=== PATIENT | male | born 1985 | race Caucasian/White ===

== ENCOUNTER 2021-09-22 07:12 | Emergency (ER) | payer SELFPAY ==
[2021-09-22 07:13] VITALS: BP 180/137; PULSE 110; RESP 16; TEMP 36.6; O2SAT 98; BMI 26.9
--- NOTE | 2021-09-22 07:32 | EDS_ITS ---
HPI History of Present Illness Chief Complaint: Flank Pain Informant: patient Narrative Narrative: Patient is a 35-year-old male with history of kidney stones presenting with dysuria and flank pain. He states he passes kidney stones frequently, but usually on his own at home. He notes for the past month he has had intermittent flank pain, right worse than left. Has also been having dysuria in the middle of the night for the past week or so. Denies any hematur ia. Denies any testicular pain, swelling or penile discharge. States it feels like his kidney stones. The pain was so bad he could not take anymore so he came in. Is been taking Advil at home and last had a dose at 8 PM last night. Has required lithotripsy in the past. Does not currently have a urologist. Denies any fever or chills. Denies any systemic symptoms. No other complaints at this time. Prior similar symptoms: Yes PFSH [facility] Medical History Kidney stone Home Medications omeprazole 20 mg PO DAILY 05/10/17 [History Last Taken 05/09/17] ondansetron [Zofran Odt] 8 mg PO Q8H PRN PRN #10 05/10/17 [Rx Last Taken Unknown] oxycodone-acetaminophen 1 tab PO Q6H PRN PRN #20 tablet 05/10/17 [Rx Last Taken Unknown] tamsulosin [Flomax] 0.4 mg PO DAILY #7 cap.er.24h 05/10/17 [Rx Last Taken Unknown] ferrous sulfate [iron] 325 mg PO TID #90 tab 09/22/21 [Rx Last Taken Unknown] ibuprofen 600 mg PO Q6H PRN PRN #20 tab 09/22/21 [Rx Last Taken Unknown] ondansetron 4 mg PO Q8H PRN #14 tab 09/22/21 [Rx Last Taken Unknown] oxycodone-acetaminophen [Percocet] 1 tab PO Q6H PRN 3 Days #12 tab 09/22/21 [Rx Last Taken Unknown] tamsulosin [Flomax] 0.4 mg PO DAILY #7 cap 09/22/21 [Rx Last Taken Unknown] Allergy/AdvReac Type Severity Reaction Status Date / Time No Known Allergies Allergy Verified 09/22/21 07:13 Social History Smoking Status: Current every day smoker tobacco type: cigarettes ROS ROS ED Constitutional Constitutional ED: Denies chills or fever(s) Eyes Eyes: Denies blurry vision ENT ENT ED: Denies rhinorrhea or sore throat Cardiovascular Cardiovascular: Denies chest pain Respiratory/Chest Respiratory/Chest: Denies dyspnea Gastrointestinal Gastrointestinal: Reports abdominal pain and other Details: right flank ; Denies constipation, diarrhea, nausea or vomiting Genitourinary Genitourinary ED: Reports dysuria; Denies hematuria or urinary frequency Musculoskeletal Musculoskeletal: Denies arthralgias or myalgias Integumentary Denies rash Neurologic Neurologic: Denies headache(s) or weakness EXAM Physical Exam Const Vital Signs: 09/22/21 07:13 09/22/21 09:17 Temperature 97.8 F Temperature Source Temporal Pulse Rate 110 H 85 Respiratory Rate 16 16 Blood Pressure 180/137 H 148/96 H Blood Pressure Mean 151 113 Pulse Ox 98 99 Oxygen Delivery Method Room Air Room Air Positive well nourished and well developed General Appearance ED: well developed and NAD HEENT Reports moist mucous membranes Eyes PERRL Neck no lymphadenopathy and supple Chest Wall inspection of chest normal Resp normal respiratory effort and clear to auscultation bilaterally Cardio regular rate, regular rhythm and no murmurs GI normal to inspection, nondistended, normoactive bowel sounds and non-tender Palpation: soft Back/Spine no CVA tenderness General Back: Negative for CVA tenderness Extremity normal to inspection General Extremety ED: Negative for edema or tenderness General Extremity: Negative for edema Neuro oriented x3 Sensorium / Orientation: alert Motor Exam: Negative for general weakness Psych mental status grossly normal Skin no rashes or lesions noted and no wounds MDM MDM MDM Narrative Medical decision making narrative: Patient evaluated for worsening flank pain. Has significant history of kidney stones. Does not currently follow with urologist. Is initially treated with IV fluids, Zofran, Toradol and morphine. Has improvement of pain but continues to have pain. Is redosed with another dose of morphine. Kidney function is normal. Lab work is remarkable for microcytic anemia with a hemoglobin of 10.7. Patient notes that he does intermittently have dark stools or blood in his stool. He is hemodynamically stable and informed of these findings. Informed that he needs outpatient follow-up. CT does show a 5.5 mm obstructing stone on the right that is just past the UVJ. Anticipate patient will pass it in the next day. Patient is also found to have slightly atypical calcified cyst of the left kidney. Patient is informed of this and need for outpatient follow-up. Is given referral for primary care doctor as well as urology. Counseled on return precautions. Patient discharged home in stable condition. Lab Data Attestation: I reviewed the patient's lab results. Labs: Laboratory Results - last 24 hr 09/22/21 09/22/21 09/22/21 07:30 07:30 08:54 WBC 6.7 RBC 5.18 Hgb 10.7 L Hct 36.3 L MCV 70.1 L MCH 20.7 L MCHC 29.5 L RDW Std Deviation 46.4 H RDW Coeff of Odilon 18.7 H Plt Count 389 MPV 8.2 Immature Gran % (Auto) 0.200 Neut % (Auto) 45.2 L Lymph % (Auto) 34.1 Hitchcock % (Auto) 11.1 H Eos % (Auto) 7.4 H Baso % (Auto) 2.0 H Absolute Neuts (auto) 3.0 Absolute Lymphs (auto) 2.27 Nucleated RBC % 0 Sodium 138 Potassium 4.2 Chloride 107 Carbon Dioxide 25.0 Anion Gap 6 BUN 12 Creatinine 0.90 Estim Creat Clear Calc 118.29 Est GFR (MDRD) Af Amer 124 Est GFR (MDRD) Non-Af 102 BUN/Creatinine Ratio 13.4 Glucose 107 H Calcium 9.0 Urine Color Yellow Urine Clarity Clear Urine pH 6.5 Ur Specific [place] 1.010 Urine Protein Negative Urine Glucose (UA) Normal Urine Ketones Negative Urine Occult Blood Negative Urine Nitrite Negative Urine Bilirubin Negative Urine Urobilinogen Normal Ur Leukocyte Esterase 25 H Urine RBC 0-5 SEEN Urine WBC 0-5 SEEN Ur Squamous Epith Cells 0-5 SEEN Urine Bacteria RARE Urine Mucus 0 SEEN Radiography Diagnostic Testing: Clinical Impression(s) from Imaging Studies Abdomen/Pelvis CT 09/22/21 08:24 IMPRESSION: 1. 5.5 mm right UVJ calculus on image 155 series 2 with hydroureter and moderate hydronephrosis, new. Bilateral nephrolithiasis. 2. Peripherally calcified cystic lesion of the left kidney, indeterminate. Renal protocol CT (without and with IV contrast) recommended after resolution of acute clinical condition. Electronically Signed: Lew Rodriguez MD ([place]) at 9:00 EDT Reading Location ID and State: [address] [place] [address] , Service support , Discharge Plan Triage Chief Complaint: Flank Pain ED Provider: Danika Uriarte Dx/Rx/DC Orders Clinical Impression: Hydronephrosis with urinary obstruction due to renal calculus, Anemia, Renal cyst, left Instructions: ED Anemia, Type Not Specified (Adult), ED Kidney Stone w/ Colic Prescriptions: New ferrous sulfate [iron] 325 mg (65 mg iron) tablet 325 mg PO TID Qty: 90 RF: 0 ibuprofen 600 mg tablet 600 mg PO Q6H PRN PRN (Reason: Pain Score 1-10/10) Qty: 20 RF: 0 oxycodone-acetaminophen [Percocet] 5-325 mg tablet 1 tab PO Q6H PRN (Reason: pain) 3 Days Qty: 12 RF: 0 ondansetron 4 mg tablet,disintegrating 4 mg PO Q8H PRN (Reason: nausea and vomiting) Qty: 14 RF: 0 tamsulosin [Flomax] 0.4 mg capsule 0.4 mg PO DAILY Qty: 7 RF: 0 No Action omeprazole 20 MG capsule 20 mg PO DAILY RF: 0 ondansetron [Zofran ODT] 8 MG tablet,disintegrating 8 mg PO Q8H PRN PRN (Reason: Nausea) Qty: 10 RF: 0 oxycodone-acetaminophen 1 TABLET tablet 1 tab PO Q6H PRN PRN (Reason: Pain) Qty: 20 RF: 0 tamsulosin [Flomax] 0.4 MG capsule 0.4 mg PO DAILY Qty: 7 RF: 0 Primary Care Provider: Care Physician,No Primary Referrals: Rinku Carter MD [STAFF PHYSICIAN] - Laura Snow [NON-STAFF] - Care Physician,No Primary [Primary Care Provider] - Activity Restrictions/Additional Instructions: You have been given medicines to help with your kidney stone as well as iron for your anemia. Please follow-up with a primary care doctor for further evaluation of this anemia. Your CT did show calcified cyst in your left kidney that needs to be evaluated further as well. This can need to be followed up with the uro logist or primary care physician. Disposition Disposition: Home, Self Care
[2021-09-22] MEDS: 0.9% Normal Saline 1,000 ML 250 ML IV (07:43)
[2021-09-22] MEDS: Ketorolac 15 MG/ML Vial IV (07:43)
[2021-09-22] MEDS: Ondansetron 4 MG/2 ML Vial IV (07:43)
[2021-09-22] MEDS: Morphine 4 MG/ML Syringe IV ×2 (07:43→09:16)
[2021-09-22 07:52] LABS: Absolute Lymphocyte Count 2.27 X10^3/uL (0.83-4.51); Basophil# 0.13 X10^3/uL; Eosinophil# 0.49 X10^3/uL; Eosinophils% 7.4 % (0-5); Hematocrit 36.3 % (40-54); Hemoglobin 10.7 g/dL (13.0-16.5); Lymphocyte # 2.27 X10^3/ul (0.83-4.51); Lymphocyte % 34.1 % (19-41); Mean Corp Hgb Conc 29.5 g/dL (32-36); Mean Corpuscular Hgb 20.7 pg (27.0-32.0); Mean Corpuscular Volume 70.1 fL (80-94); Mean Platelet Vol. 8.2 fl (6.2-12.0); Monocyte# 0.74 X10^3/uL; Monocyte% 11.1 % (0-10); NRBC Flagged by Analyzer 0 % (0-5); Neutrophil # 3.01 X10^3/uL (2.7-7.7); Neutrophil % 45.2 % (47-70); Platelet Count 389 K/mm3 (150-450); RBC Distribution Width CV 18.7 % (11.6-14.6); RBC Distribution Width SD 46.4 fl (35.1-43.9); Red Blood Count 5.18 M/mm3 (4.6-6.2); White Blood Count 6.7 K/mm3 (4.4-11.0)
[2021-09-22 08:02] LABS: Anion Gap 6 (5-15); BUN 12 mg/dL (7-18); BUN/Creat Ratio 13.4 RATIO (10-20); Chloride 107 mmol/L (98-107); EST Glomerular Filtration Rate 102 mL/min (>60); Est Glom Filt Rate - Afr Amer 124 mL/min (>60); Estimated Creatinine Clearance 118.29 ml/min; Glucose 107 mg/dL (74-106); Potassium 4.2 mmol/L (3.5-5.1); Sodium Level 138 mmol/L (136-145)
--- NOTE | 2021-09-22 08:24 | CT_ITS ---
EXAM: CT ABDOMEN AND PELVIS WITHOUT INTRAVENOUS CONTRAST CLINICAL INDICATION: right flank pain TECHNIQUE: Helically acquired images were obtained of the abdomen and pelvis without intravenous contrast. This CT exam was performed using one or more of the following dose reduction techniques: automated exposure control, adjustment of the mA and/or kV according to patient size, and/or use of iterative reconstruction technique. This report was created using [employer] report generation technology. RADIATION DOSE: CTDIvol = 7.5 mGy, DLP = 393.45 mGy-cm COMPARISON: None. FINDINGS: LOWER THORAX: Unremarkable. Lung bases are clear. No cardiomegaly. No significant pericardial effusion. ABDOMEN: LIVER: Unremarkable. Homogeneous. GALLBLADDER AND BILE DUCTS: Unremarkable. No calcified gallstones. No gallbladder distention or wall edema. No intra- or extrahepatic biliary ductal dilation. PANCREAS: Unremarkable. No focal cystic mass. SPLEEN: Unremarkable. Normal size without focal cystic or solid mass. ADRENALS: Unremarkable. No nodules. KIDNEYS AND URETERS: 5.5 mm right UVJ calculus on image 155 series 2 with hydroureter and moderate hydronephrosis, new. Peripherally calcified low-density lesion of the anterior left kidney measuring 1.4 cm on image 65 of series 2. Numerous bilateral renal calculi not substantially changed. STOMACH AND BOWEL: Unremarkable. No stomach or bowel distention. No focal inflammatory change. PELVIS: APPENDIX: No evidence of acute appendicitis. BLADDER: Unremarkable. REPRODUCTIVE: Unremarkable as visualized. No mass. ABDOMEN and PELVIS: INTRAPERITONEAL SPACE: Unremarkable. No ascites or other fluid collection. No free air. BONES/JOINTS: Unremarkable. No suspicious lytic or blastic abnormality. SOFT TISSUES: Small periumbilical hernia. VASCULATURE: Unremarkable. Abdominal aorta is non-dilated. LYMPH NODES: Unremarkable. No enlarged lymph nodes. CT/Abdomen/Pelvis without Cont IMPRESSION: 1. 5.5 mm right UVJ calculus on image 155 series 2 with hydroureter and moderate hydronephrosis, new. Bilateral nephrolithiasis. 2. Peripherally calcified cystic lesion of the left kidney, indeterminate. Renal protocol CT (without and with IV contrast) recommended after resolution of acute clinical condition. Electronically Signed: Lew Rodriguez MD ([place]) at 9:00 EDT Reading Location ID and State: [address] [place] [address] , Service support ,
[2021-09-22 09:00] LABS: Mucous, Urine 0 SEEN /hpf (<or=2+)
[2021-09-22 09:01] LABS: Color, Urine Yellow (Yellow); Glucose, Dipstick Normal (Normal); Ketone-Dipstick Negative (Negative); Leukocyte Esterase-Dipstick 25 /ul (Negative); Nitrite-Dipstick Negative (Negative); Occult Blood-Urine Negative /ul (Negative); Protein-Dipstick Negative (Negative); Urine Bilirubin Dipstick Negative (Negative); Urine Clarity Clear (Clear); Urine Urobilinogen Normal (Normal); Urine pH 6.5 (5.0 - 8.0)
[2021-09-22 09:12] LABS: Bacteria RARE /hpf (None Seen); Red Blood Cells-Urine 0-5 SEEN /hpf (0-5); Squamous Epithelial Cells - UA 0-5 SEEN /hpf (0-5); White Blood Cells 0-5 SEEN /hpf (0-5)
[2021-09-22 09:17] VITALS: BP 148/96; PULSE 85; RESP 16; O2SAT 99
[2021-09-22 10:18] VITALS: BP 157/111
== END 2021-09-22 10:22 | disposition home or self-care (01) ==
PROVIDERS: Emergency Provider Emergency Medicine; Visit Provider Emergency Medicine
DX: N13.2 Hydronephrosis with renal and ureteral calculous obstruction (principal); N28.1 Cyst of kidney, acquired; D64.9 Anemia, unspecified; F17.210 Nicotine dependence, cigarettes, uncomplicated; Z79.899 Other long term (current) drug therapy; Z87.442 Personal history of urinary calculi
CPT/HCPCS: 74176; 80048; 81001; 85025; 96361; 96374; 96375; 96376; 99283; J7030; A4216; J2405

== ENCOUNTER 2023-08-16 11:37 | Emergency (ER) | payer SELFPAY ==
[2023-08-16 11:38] VITALS: BP 168/122; PULSE 112; RESP 16; TEMP 36.2; O2SAT 100; BMI 25.8
[2023-08-16 11:41] VITALS: BP 168/122; PULSE 112; RESP 16; O2SAT 100
--- NOTE | 2023-08-16 13:05 | CT_ITS ---
STUDY: CT ABDOMEN AND PELVIS WITHOUT CONTRAST REASON FOR EXAM: Male, 37 years old. FLANK PAIN RADIATION DOSAGE (If Supplied By Facility): CTDIvol = ( 10.23 ) mGy, DLP = ( 598.18 ) mGycm TECHNIQUE: Transaxial images were obtained from the dome of the diaphragm to the symphysis pubis without oral contrast, and without intravenous contrast. Sagittal and coronal images were reconstructed. Individualized dose optimization techniques were used for this CT. COMPARISON: Comparison is made with prior study dated September 22, 2021. FINDINGS: The visualized lung bases are unremarkable. The visualized portions of the heart are within normal limits. Normal liver. Normal gallbladder and extrahepatic biliary system. Normal spleen. Normal pancreas. Normal bilateral adrenal glands. Multiple nonobstructive right intrarenal calculi. The largest calculus is in the lower pole and measures 5.2 mm. Multiple left intrarenal calculi. The largest calculus measures 9.1 mm. Moderate degree of right hydronephrosis in the right hydroureter. Mild degree of a left perinephric stranding. There is a 2 mm calculus in the distal portion of the left ureter. A 3 mm calculus is seen at the base of the bladder on the left side suggestive of a recently passed left ureteral calculus. Stable 1.4 cm rim calcification in the low density lesion in the upper pole of the left kidney. There is a small hiatal hernia. Normal small intestine. There are scattered colonic diverticula consistent with diverticulosis. The appendix is visualized and appears normal. Normal abdominal aorta. Normal inferior vena cava. There is small retroperitoneal lymphadenopathy with enlarged nodes no greater than 10mm in the short axis diameter. Normal urinary bladder. There is a small umbilical hernia containing fat. Normal osseous structures. CT/Abdomen/Pelvis without Cont IMPRESSION: Moderate degree of left hydronephrosis and hydroureter due to a 2 mm calculus in the distal portion of the left ureter. A 3 mm calculus is seen in the left side of the urinary bladder incomplete with a recently passed calculi. Multiple bilateral nonobstructive intrarenal calculi. Electronically Signed: Mike Camara MD at 8:38 EDT ,
[2023-08-16] MEDS: HYDROmorphone 1 MG/ML Syringe IV (16:09)
[2023-08-16 16:15] VITALS: BP 157/109
[2023-08-16] MEDS: Ceftriaxone 1 GM/50 ML BAG IV (16:15)
--- NOTE | 2023-08-16 16:32 | EX.ED.DYSGE1 ---
HPI History of Present Illness Chief Complaint: Flank Pain Informant: patient Narrative Narrative: Delayed note due to unexpected system downtime. Waxing waning left flank pain rating to his groin since Tuesday for the past 3 days. States mild burning with urination. No fevers. No nausea or vomiting. History of multiple kidney stones in the past last time was 5 years ago. He states all his urologist retired. He has had stenting in the past. Denies kidney injury or gastric ulcers. Pain more severe today feels similar to his kidney stones. Prior similar symptoms: Yes PFSH PFSH Medical History Kidney stone Home Medications omeprazole 20 mg capsule,delayed release 20 mg PO DAILY 05/10/17 [History Last Taken 05/09/17] ondansetron 8 mg disintegrating tablet (Zofran ODT) 8 mg PO Q8H PRN PRN Nausea ##10 05/10/17 [Rx Last Taken Unknown] oxycodone-acetaminophen 5 mg-325 mg tablet 1 tab PO Q6H PRN PRN Pain ##20 05/10/17 [Rx Last Taken Unknown] tamsulosin 0.4 mg capsule (Flomax) 0.4 mg PO DAILY ##7 05/10/17 [Rx Last Taken Unknown] ferrous sulfate 325 mg (65 mg iron) tablet (iron) 325 mg PO TID #90 tabs 09/22/21 [Rx Last Taken Unknown] ibuprofen 600 mg tablet 600 mg PO Q6H PRN PRN Pain Score 1-10/10 #20 tabs 09/22/21 [Rx Last Taken Unknown] ondansetron 4 mg disintegrating tablet 4 mg PO Q8H PRN nausea and vomiting #14 tabs 09/22/21 [Rx Last Taken Unknown] oxycodone-acetaminophen 5 mg-325 mg tablet (Percocet) 1 tab PO Q6H PRN pain 3 days #12 tabs 09/22/21 [Rx Last Taken Unknown] tamsulosin 0.4 mg capsule (Flomax) 0.4 mg PO DAILY #7 caps 09/22/21 [Rx Last Taken Unknown] cefdinir 300 mg capsule 300 mg PO Q12H #14 caps 08/16/23 [Rx Last Taken Unknown] ibuprofen 600 mg tablet 600 mg PO Q6H PRN PRN pain #20 TABLETS 03/12/24 [Rx Last Taken Unknown] ondansetron 4 mg disintegrating tablet 4 mg PO Q8H PRN PRN Nausea #10 tabs 08/16/23 [Rx Last Taken Unknown] oxycodone-acetaminophen 5 mg-325 mg tablet 1 tab PO Q6H PRN PRN Pain 3 days #12 TABLETS 08/16/23 [Rx Last Taken Unknown] Allergy/AdvReac Type Severity Reaction Status Date / Time No Known Allergies Allergy Verified 08/16/23 11:41 Social History Smoking Status: Current every day smoker tobacco type: cigarettes ROS ROS ED Constitutional Constitutional ED: Denies chills, fever(s) or sweats Eyes Eyes: Denies change in vision ENT ENT ED: Denies dysphagia or sore throat Cardiovascular Cardiovascular: Denies chest pain, leg edema, palpitations or racing heartbeat Respiratory/Chest Respiratory/Chest: Denies cough, dyspnea or dyspnea on exertion Gastrointestinal Gastrointestinal: Denies abdominal pain, diarrhea, nausea or vomiting Genitourinary Genitourinary ED: Denies dysuria, hematuria or urinary frequency Musculoskeletal Musculoskeletal: Reports back pain; Denies extremity pain or neck pain Integumentary Denies rash or wounds Neurologic Neurologic: Denies headache(s), paresthesias or weakness EXAM Physical Exam Const Vital Signs: 08/16/23 11:38 08/16/23 11:41 08/16/23 16:15 Temperature 97.2 F L Temperature Source Temporal Pulse Rate 112 H 112 H Respiratory Rate 16 16 Blood Pressure 168/122 H 168/122 H 157/109 H Blood Pressure Mean 137 137 125 Pulse Ox 100 100 Oxygen Delivery Method Room Air Room Air Positive well nourished and well developed Constitutional Narrative: Nontoxic General Appearance ED: well developed HEENT Reports moist mucous membranes normocephalic and atraumatic Eyes PERRL, EOMs intact bilaterally and conjunctivae normal General Eye ED: Yes normal appearance of both eyes Neck no lymphadenopathy and supple General: Negative for tenderness Chest Wall Chest: Negative for tenderness Resp normal respiratory effort and normal air movement Effort and Inspection: symmetric chest movement; Negative for respiratory distress Cardio regular rate, regular rhythm and no murmurs Peripheral Pulses: pulses 2+ throughout GI normal to inspection, nondistended, normoactive bowel sounds and non-tender Palpation: Negative for guarding or rebound tenderness present Back/Spine no CVA tenderness and no thoracic nor lumbar tenderness Back/Spine Narrative: No rash. Extremity normal to inspection General Extremety ED: Negative for edema or tenderness General Extremity: Negative for edema Neuro oriented x3 and no sensory deficits noted Sensorium / Orientation: awake and alert Skin no rashes or lesions noted and no wounds MDM MDM MDM Narrative Medical decision making narrative: Interventions / MDM: Differential diagnosis: Kidney stone, UTI Diagnosis considered but do not suspect: N/A My EKG interpretation: N/A Imaging independently reviewed and interpreted by myself: CT abdomen pelvis: Read by radiology due to system being down. 2 mm left UVJ stone, current 3 mm stone in the bladder. Left hydro ureter noted. Bilateral nephrolithiasis. External documents reviewed: N/A Test considered but not ordered:N/A ED course: Delayed obtaining labs urine due to downtime. Protocol with verbal orders for IV establishment Zofran Toradol morphine ordered for symptom trial along with fluids. CT scan did confirm stone 1 in the bladder 1 in the ureter. Additional morphine was required, labs white count at 8 hemoglobin 10 creatinine 0.89. Urine noted 100 leukocytes blood negative nitrites and white blood cells. I did send for urine culture. Reevaluation reported pain was not proving still an 8. Is given IV Rocephin for questionable UTI with his stone. Treated with IV Dilaudid. Will reevaluate. Symptoms improved reevaluation. Prescriptions to help with pain medicines with antibiotics. Outpatient follow-up with urology. Strict return precautions. All questions were answered. Re-evaluation: stable Disposition discussed with patient/family/significant other: Patient Case discussed with consulting clinician: N/A This note was generated with [employer] dictation software. It may contain incorrect words, spelling, and punctuation that were not noted in checking the note before signing. Radiography Diagnostic Testing: Clinical Impression(s) from Imaging Studies Abdomen/Pelvis CT 08/16/23 13:05 IMPRESSION: Moderate degree of left hydronephrosis and hydroureter due to a 2 mm calculus in the distal portion of the left ureter. A 3 mm calculus is seen in the left side of the urinary bladder incomplete with a recently passed calculi. Multiple bilateral nonobstructive intrarenal calculi. Electronically Signed: Mike Camara MD at 8:38 EDT , Discharge Plan Triage Chief Complaint: Flank Pain ED Provider: Wang Champion Dx/Rx/DC Orders Clinical Impression: Urolithiasis, Acute UTI, Renal colic on left side Instructions: Urinary Tract Infections in Men, ED Kidney Stone with Pain Prescriptions: New oxycodone-acetaminophen [oxycodone-acetaminophen] 5-325 mg tablet 1 tab PO Q6H PRN PRN (Reason: Pain) 3 Days Qty: 12 0RF ibuprofen 600 mg tablet 600 mg PO Q6H PRN PRN (Reason: pain) Qty: 20 0RF ondansetron [ondansetron] 4 mg tablet,disintegrating 4 mg PO Q8H PRN PRN (Reason: Nausea) Qty: 10 0RF cefdinir 300 mg capsule 300 mg PO Q12H Qty: 14 0RF No Action omeprazole 20 MG capsule 20 mg PO DAILY ondansetron [Zofran ODT] 8 MG tablet,disintegrating 8 mg PO Q8H PRN PRN (Reason: Nausea) Qty: 10 0RF oxycodone-acetaminophen 1 TABLET tablet 1 tab PO Q6H PRN PRN (Reason: Pain) Qty: 20 0RF tamsulosin [Flomax] 0.4 MG capsule 0.4 mg PO DAILY Qty: 7 0RF ferrous sulfate [iron] 325 mg (65 mg iron) tablet 325 mg PO TID Qty: 90 0RF ibuprofen 600 mg tablet 600 mg PO Q6H PRN PRN (Reason: Pain Score 1-10/10) Qty: 20 0RF oxycodone-acetaminophen [Percocet] 5-325 mg tablet 1 tab PO Q6H PRN (Reason: pain) 3 Days Qty: 12 0RF ondansetron 4 mg tablet,disintegrating 4 mg PO Q8H PRN (Reason: nausea and vomiting) Qty: 14 0RF tamsulosin [Flomax] 0.4 mg capsule 0.4 mg PO DAILY Qty: 7 0RF Primary Care Provider: Care Physician,No Primary Referrals: Rinku Carter MD [Med Staff - Active Staff] - 3-5 Days Care Physician,No Primary [Primary Care Provider] - Activity Restrictions/Additional Instructions: You have currently a stone in your bladder 3 mm that will pass. You have a current 2 mm left UVJ stone. There were small stones in bilateral kidneys also. Your urine only had 100 leukocytes, urine culture sent. You will be treated for infection due to having burning with urination. Take pain and nausea medicine as prescribed. If you develop worsening symptoms not controlled medications or fevers and feeling worse, return to the ED for reevaluation. Disposition Disposition: Home, Self Care Discharge Date/Time: 08/16/23 17:34
[2023-08-16 17:25] VITALS: BP 150/98; PULSE 74; RESP 16; TEMP 37; O2SAT 100
[2023-08-16 19:30] LABS: Bacteria 0 SEEN /hpf (None Seen); Color, Urine Yellow (Yellow); Glucose, Dipstick NEGATIVE (Normal); Ketone-Dipstick 5 mg/dl (Negative); Leukocyte Esterase-Dipstick 100 /ul (Negative); Mucous, Urine 0 SEEN /hpf (<or=2+); Nitrite-Dipstick Negative (Negative); Occult Blood-Urine 50 /ul (Negative); Protein-Dipstick 15 mg/dl (Negative); Urine Bilirubin Dipstick Negative (Negative); Urine Clarity Clear (Clear); Urine Urobilinogen Normal (Normal)
[2023-08-16 19:31] LABS: Red Blood Cells-Urine 5-10 SEEN /hpf (0-5); Squamous Epithelial Cells - UA 0-5 SEEN /hpf (0-5); White Blood Cells 0-5 SEEN /hpf (0-5)
[2023-08-16 20:05] LABS: Hemoglobin 10.8 g/dL (13.0-16.5); Red Blood Count 5.09 M/mm3 (4.6-6.2)
[2023-08-16 20:06] LABS: Basophil% 1.5 % (0-1); Lymphocyte % 38.6 % (19-41); Mean Corp Hgb Conc 29.2 g/dL (32-36); Mean Corpuscular Hgb 21.2 pg (27.0-32.0); Mean Corpuscular Volume 72.7 fL (80-94); Mean Platelet Vol. 8.6 fl (6.2-12.0); Neutrophil # 3.82 X10^3/uL (2.7-7.7); Neutrophil % 47.5 % (47-70); Platelet Count 417 K/mm3 (150-450); RBC Distribution Width CV 17.1 % (11.6-14.6); RBC Distribution Width SD 43.4 fl (35.1-43.9)
[2023-08-16 20:07] LABS: Absolute Neutrophil Count 3.8 X10^3/uL (2.0-7.7); Basophil# 0.12 X10^3/uL; Eosinophil# 0.16 X10^3/uL; NRBC Flagged by Analyzer 0 % (0-5)
[2023-08-16 22:02] LABS: BUN 12 mg/dL (7-18); BUN/Creat Ratio 14.1 RATIO (10-20); Calcium,Total 9.3 mg/dL (8.5-10.1); Creatinine, Serum 0.85 mg/dL (0.70-1.30); EST Glomerular Filtration Rate 108 mL/min (>60); Est Glom Filt Rate - Afr Amer 131 mL/min (>60); Estimated Creatinine Clearance 122.86 ml/min; Glucose 96 mg/dL (74-106)
[2023-08-16 22:03] LABS: Anion Gap 5 (5-15); Chloride 104 mmol/L (98-107); Potassium 3.9 mmol/L (3.5-5.1); Sodium Level 137 mmol/L (136-145)
== END 2023-08-16 17:34 | disposition home or self-care (01) ==
PROVIDERS: Emergency Provider Emergency Medicine; Visit Provider Emergency Medicine
DX: R10.9 Unspecified abdominal pain (principal); N13.2 Hydronephrosis with renal and ureteral calculous obstruction; F17.210 Nicotine dependence, cigarettes, uncomplicated; Z87.442 Personal history of urinary calculi
CPT/HCPCS: 74176; 80048; 81001; 85025; 96365; 96375; 99282; J2405